=== PATIENT | male | born 1945 | race Two or more races ===

== ENCOUNTER 2022-11-04 05:45 | Day surgery (SDC) | payer OTHER ==
[~2022-11-04] VITALS: Ht 160 cm; Wt 72.6 kg
[~2022-11-04 05:45] MED LIST: BRILINTA60 MG PO; FINASTERIDE5 MG PO; JARDIANCE25 MG PO; LIPITOR40 MG PO; LOSARTAN POTASS25 MG PO; METFORMIN HCL500 M3 PO; SINGULAIR10 MG PO; TAMS0.4C PO; TOPROL XL25 M1 PO; ZOLOFT50 MG PO
[2022-11-04] MEDS ORDERED: PERCOCET 5-3251 EACH PO (08:43)
== END 2022-11-04 14:45 | disposition home or self-care (01) ==
LOC: CIR.AMB 05:45
PROVIDERS: ATTEND Surgery
DX: K64.4 Residual hemorrhoidal skin tags (principal); K64.8 Other hemorrhoids; K62.5 Hemorrhage of anus and rectum; K62.89 Other specified diseases of anus and rectum; I10 Essential (primary) hypertension; E11.9 Type 2 diabetes mellitus without complications; Z79.84 Long term (current) use of oral hypoglycemic drugs; Z20.822 Contact with and (suspected) exposure to COVID-19